=== PATIENT | male | born 1970 | race African-American/Black ===

== ENCOUNTER 2016-12-22 16:17 | Emergency (ER) | payer OTHER ==
[~2016-12-22] VITALS: Ht 172.7 cm; Wt 83.9 kg
--- NOTE | 2016-12-22 17:01 | ED INFLUENZA/URI COMPLAINT ---
History of Present Illness General Chief Complaint: Upper Respiratory Sx/Fever Stated Complaint: COUGH FEVER Source: patient Exam Limitations: no limitations Vital Signs & Intake/Output Vital Signs & Intake/Output Vital Signs Date Time Temp Pulse Resp B/P Pulse O2 O2 Flow FiO2 Ox Delivery Rate 12/22 1904 98.3 69 18 132/74 97 Room Air 12/22 1739 98.8 12/22 1620 98.8 90 18 166/104 97 Room Air Allergies Coded Allergies: No Known Allergies (12/22/16) Reconcile Medications Albuterol Sulfate (Ventolin Hfa) 90 MCG HFA.AER.AD 2 PUF INH Q4-6 PRN PRN SHORTNESS OF BREATH Benzonatate (Tessalon Perle) 100 MG CAPSULE 1 CAP PO TID PRN COUGH Oseltamivir Phosphate (Tamiflu) 75 MG CAPSULE 1 CAP PO BID INFLUENZA Triage Note: PT COMPLAINS OF FEVERS , COUGH AND HEADACHE AND UNABLE TO MOVE BOWELS SINCE FRIDAY. ALSO STATES THAT HE HAS NAUSEA Triage Nurses Notes Reviewed? yes Onset: Gradual Duration: constant Severity: moderate Severity Numbers: 5 HPI: Patient is a 46-year-old male who presents emergency room with a one-day history of upper respirator complaints such as nonproductive persistent cough coughing with pleuritic chest pain, chills, bodyaches muscle pain nasal congestion Patient states that over the weekend he was not feeling well as well and has had decreased by mouth intake where he has not had a bowel movement in 2 days and has generalized abdominal discomfort. Patient is able tolerate by mouth. Patient has tried eepf-wcr-fiacyoh NyQuil with minimal relief of symptoms. Denies any chest pain sore throat ear pain neck pain neck stiffness nausea or vomiting (ROSALINDA RESENDEZ) Past History Travel History Traveled to [place] past 21 day No Medical History Any Pertinent Medical History? none Neurological: NONE EENT: NONE Cardiovascular: NONE Respiratory: NONE Gastrointestinal: NONE Hepatic: NONE Renal: NONE Musculoskeletal: NONE Psychiatric: NONE Endocrine: NONE Blood Disorders: NONE Cancer(s): NONE WELCOME WAGON HOSTESS/Reproductive: NONE Surgical History Surgical History: non-contributory Psychosocial History What is your primary language Malaysian Tobacco Use: Never used ETOH Use: denies use Illicit Drug Use: denies illicit drug use Family History Hx Contributory? No (ROSALINDA RESENDEZ) Review of Systems Review of Systems Constitutional: Reports: see HPI, chills. EENTM: Reports: see HPI. Respiratory: Reports: see HPI, cough. Cardiovascular: Reports: no symptoms. GI: Reports: see HPI, abdominal pain, constipation. Genitourinary: Reports: no symptoms. Musculoskeletal: Reports: see HPI, joint pain. Skin: Reports: no symptoms. Neurological/Psychological: Reports: no symptoms. Hematologic/Endocrine: Reports: no symptoms. Immunologic/Allergic: Reports: no symptoms. All Other Systems: Reviewed and Negative (ROSALINDA REESNDEZ) Physical Exam Physical Exam General Appearance: no apparent distress, alert Ears, Nose, Throat: normal ENT inspection, moist mucous membrane, hearing grossly normal, Tympanic normal, pharynx normal Comments: Well-developed well-nourished person in no acute distress HEENT: Normal EENT exam, extraocular motion intact, no nystagmus. Pupils equally round and reactive to light and accommodation. Nose is atraumatic. External auditory canal and Tympanic membranes clear. Pharynx normal. No swelling or edema. Neck: Supple, no lymphadenopathy, normal range of motion without pain or tenderness Back: Nontender, no CVA tenderness. Cardiovascular: Regular rate and rhythms no murmurs rubs or gallops, normal JVP Respiratory: Chest nontender. No respiratory distress.breath sounds clear to auscultation bilaterally Abdomen: Soft, mild generalized abdominal pain nondistended, no appreciable organomegaly. Normal bowel sounds. No ascites Extremity: No edema, no calf tenderness to palpation, normal and equal pulses. Neuro: Alert oriented x3, motor sensory normal, Skin: No appreciable rash on exposed skin, skin is warm and dry. Psych: Mood and affect is normal, memory and judgment is normal. Core Measures Severe Sepsis Present: No Septic Shock Present: No (ROSALINDA RESENDEZ) Progress Differential Diagnosis: influenza, meningitis, neutropenia, otitis, pneumonia, pharyngitis, sinusitis Plan of Care: Orders Procedure Date/time Status RAPID VIRAL INFLUENZA A 12/22 173 Complete LIPASE 12/22 173 Complete COMPREHENSIVE METABOLIC PANEL 12/22 173 Complete CBC WITHOUT DIFFERENTIAL 12/22 1732 Complete AMYLASE 12/22 173 Complete Laboratory Tests 12/22/16 1805: Anion Gap 10, Estimated GFR > 60, BUN/Creatinine Ratio 10.0, Glucose 90, Calcium 9.0, Total Bilirubin 1.0, AST 20, ALT 35, Alkaline Phosphatase 61, Total Protein 6.9, Albumin 4.0, Globulin 2.9, Albumin/Globulin Ratio 1.4, Amylase 33, Lipase 29, CBC w Diff NO MAN DIFF REQ, RBC 4.12 L, MCV 94.9 H, MCH 32.5 H, RDW 12.6, MPV 6.8 L, Gran % 77.4 H, Lymphocytes % 14.7 L, Monocytes % 7.7, Eosinophils % 0.2, Basophils % 0 L, Absolute Granulocytes 4.4, Absolute Lymphocytes 0.8 L, Absolute Monocytes 0.4, Absolute Eosinophils 0, Absolute Basophils 0, PUBS MCHC 34.3 Microbiology 12/23 1739 NASOPHARYN: Influenza Virus A & B Rapid Smear - COMP INFLUENZA TYPE B Patient currently is resting comfortably and shows no concerns of obstruction of abdomen. Was informed of constipation and positive influenza. No suspicion of appendicitis Patient is able tolerate by mouth afebrile (BUSHRA BAEZ,ROSALINDA) Diagnostic Imaging: Viewed by Me: Radiology Read. Radiology Impression: SEE COMMENTS Initial ED EKG: none Comments: PATIENT: GAB RAZA PRESENT AGE: 46 PATIENT ACCOUNT NO: [id number] : 72 LOCATION: ER ORDERING PHYSICIAN: ROSALINDA BAEZ SERVICE DATE: 12/22/16 EXAM TYPE: RAD - [id number]-UOXHKJ VIEW EXAMINATION: XR ABDOMEN CLINICAL INDICATION: Abdominal pain. Lack of bowel movement for 2 days. Evaluate for bowel obstruction. COMPARISON: None TECHNIQUE: Abdomen, AP view (KUB) FINDINGS: A lwvrilzu-sv-jimqt amount of stool is present within the nondilated colon. The bowel gas pattern is normal, and gas is seen to level the rectum. There is no evidence of bowel obstruction or pneumoperitoneum. There are no abnormal calcifications in the abdomen or pelvis. The visualized bones are intact. Incidentally noted is aspherical shape of each femoral head with osseous "bump" at the femoral head-neck junction, a configuration that might predispose to femoroacetabular impingement disorder. IMPRESSION: 1. Atdjwvct-oy-jzsep amount stool is present within the colon. 2. No evidence of bowel obstruction. PATIENT: GAB RAZA PRESENT AGE: 46 PATIENT ACCOUNT NO: [id number] : 72 LOCATION: ER ORDERING PHYSICIAN: ROSALINDA BAEZ SERVICE DATE: 12/22/16 EXAM TYPE: RAD - XRY-CHEST XRAY, PA AND LATERAL EXAMINATION: XR CHEST CLINICAL INFORMATION: Cough and chills. COMPARISON: None TECHNIQUE: 2 views of the chest were obtained. FINDINGS: Lungs are well expanded and clear. Trachea is midline in position. There is no pulmonary consolidation or pleural effusion. The cardiac silhouette is normal in size. The mediastinal and hilar contours are normal. Bones are unremarkable. IMPRESSION: No acute cardiopulmonary disease. DICTATED BY: YAMILA CAMILO MD DATE/TIME DICTATED:12/22/161805 QUILL WORKER:LAKHWINDER DATE/TIME TRANSCRIBED:12/22/161805 (ROSALINDA RESENDEZ) Departure Departure Disposition: HOME OR SELF CARE Condition: Stable Clinical Impression Primary Impression: Influenza B Secondary Impressions: Constipation Referrals: PATIENT HAS NO PRIMARY CARE DR (PCP/Family) Additional Instructions: As discussed begin the prescription of Tamiflu as directed for the full course. Begin the prescription of Tessalon Perles for cough and Ventolin for shortness of breath. Begin blfs-ytb-sjpovim stool softener such as DOCULASATE and over- the-counter MiraLAX for improvement of bowel production. If symptoms worsen return to emergency room. Departure Forms: Customer Survey General Discharge Information Prescriptions: Current Visit Scripts Oseltamivir Phosphate (Tamiflu) 1 CAP PO BID #10 CAP Benzonatate (Tessalon Perle) 1 CAP PO TID PRN COUGH #21 CAP Albuterol Sulfate (Ventolin Hfa) 2 PUF INH Q4-6 PRN PRN SHORTNESS OF BREATH #1 INHAL (ROSALINDA RESENDEZ) PA/SATELLITE PROJECT SITE MONITOR Co-Sign Statement Statement: ED Attending supervision documentation- [] I saw and evaluated the patient. I have also reviewed all the pertinent lab results and diagnostic results. I agree with the findings and the plan of care as documented in the PA's/SATELLITE PROJECT SITE MONITOR's documentation. X I have reviewed the ED Record and agree with the PA's/SATELLITE PROJECT SITE MONITOR's documentation. [] Additions or exceptions (if any) to the PAs/SATELLITE PROJECT SITE MONITOR's note and plan are summarized below: [] (LAUREN HOLLIDAY,ROSAMARIA)
--- NOTE | 2016-12-22 18:10 | RADIOLOGY REPORT ---
EXAMINATION: XR CHEST CLINICAL INFORMATION: Cough and chills. COMPARISON: None TECHNIQUE: 2 views of the chest were obtained. FINDINGS: Lungs are well expanded and clear. Trachea is midline in position. There is no pulmonary consolidation or pleural effusion. The cardiac silhouette is normal in size. The mediastinal and hilar contours are normal. Bones are unremarkable. IMPRESSION: No acute cardiopulmonary disease.
--- NOTE | 2016-12-22 18:13 | RADIOLOGY REPORT ---
EXAMINATION: XR ABDOMEN CLINICAL INDICATION: Abdominal pain. Lack of bowel movement for 2 days. Evaluate for bowel obstruction. COMPARISON: None TECHNIQUE: Abdomen, AP view (KUB) FINDINGS: A mefkgsur-zv-hwqha amount of stool is present within the nondilated colon. The bowel gas pattern is normal, and gas is seen to level the rectum. There is no evidence of bowel obstruction or pneumoperitoneum. There are no abnormal calcifications in the abdomen or pelvis. The visualized bones are intact. Incidentally noted is aspherical shape of each femoral head with osseous "bump" at the femoral head-neck junction, a configuration that might predispose to femoroacetabular impingement disorder. IMPRESSION: 1. Dwrowebk-rl-edlnn amount stool is present within the colon. 2. No evidence of bowel obstruction.
[2016-12-22 18:29] LABS: ABSOLUTE BASOPHIL COUNT 0 /CUMM (0.0-0.2); ABSOLUTE EOSINOPHIL COUNT 0 /CUMM (0.0-0.7); ABSOLUTE GRANULOCYTE CT 4.4 /CUMM (1.4-6.5); ABSOLUTE LYMPH COUNT 0.8 /CUMM (1.2-3.4); ABSOLUTE MONOCYTE COUNT 0.4 /CUMM (0.10-0.60); BASOPHIL % 0 % (0.0-2.0); EOSINOPHIL % 0.2 % (0-5); GRANULOCYTE % 77.4 % (42.2-75.2); HEMATOCRIT 39.1 % (42-52); MEAN CORPUSCULAR HGB 32.5 PG (27.0-31.0); MEAN CORPUSCULAR HGB CONC 34.3 G/DL (33.0-37.0); MEAN CORPUSCULAR VOLUME 94.9 FL (80.0-94.0); MEAN PLATELET VOLUME 6.8 FL (7.4-10.4); PLATELET COUNT 153 /CUMM (130-400); RBC DISTRIBUTION WIDTH 12.6 % (11.5-14.5); RED BLOOD CELL CT 4.12 /CUMM (4.70-6.10); WHITE BLOOD CELL COUNT 5.7 /CUMM (4.8-10.8)
[2016-12-22] MEDS ORDERED: VENTOLIN HFA18 GM INH (18:36)
[2016-12-22] MEDS ORDERED: TESSALON PERLE100 M1 PO (18:36)
[2016-12-22] MEDS ORDERED: TAMIFLU75 M1 PO (18:36)
[2016-12-22 19:04] VITALS: BP 132/74
== END 2016-12-22 19:12 ==
LOC: ERH 16:17
PROVIDERS: Physician Assistant
DX: J10.1 Influenza due to other identified influenza virus with other respiratory manifestations (principal); K59.00 Constipation, unspecified; R07.81 Pleurodynia
CPT/HCPCS: 74000; 87804; 87804-59